=== PATIENT | female | born 2000 | race African-American/Black ===

== ENCOUNTER 2019-05-13 10:32 | Emergency (ER) | payer MEDICAID ==
[~2019-05-13] VITALS: Ht 162.6 cm; Wt 67.6 kg
[2019-05-13 10:39] VITALS: BP 114/80
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
--- NOTE | 2019-05-13 10:50 | NUR ---
DR CISNEROS AT BEDSIDE FOR EVAL.
[2019-05-13] MEDS ORDERED: IV NS 0.9% 1,000 ML BAG IV ONE (11:00)
[2019-05-13] MEDS ORDERED: ONDANSETRON HCL/PF 4 MG/2 ML VIAL IVP ONE (11:00)
[2019-05-13] MEDS ORDERED: ONDANSETRON HCL/PF 4 MG/2 ML VIAL ONE (11:01)
[2019-05-13 11:03] LABS: BASOPHILS % (AUTO) 0.3 % (0.0-2.0); EOSINOPHILS % (AUTO) 0.5 % (0.0-6.0); HEMATOCRIT 40 % (33-45); HEMOGLOBIN 13.3 g/dL (11.5-14.8); LYMPHOCYTES # (AUTO) 1.8 /CMM (0.8-4.8); LYMPHOCYTES % (AUTO) 19.2 % (20.0-44.0); MEAN CORPUSCULAR HGB CONC 34 g/dl (31.0-36.0); MEAN CORPUSCULAR VOLUME 86 fL (82-100); MONOCYTES # (AUTO) 0.6 /CMM (0.1-1.30); MONOCYTES % (AUTO) 6.9 % (2.0-12.0); NEUTROPHILS # (AUTO) 6.9 /CMM (1.8-8.9); NEUTROPHILS % (AUTO) 73.1 % (43.0-81.0); PLATELET COUNT (AUTO) 363 /CMM (150-450); RED BLOOD CELL COUNT(AUTO) 4.58 MIL/uL (4.0-5.2); WHITE BLOOD COUNT (AUTO) 9.5 K/uL (4.3-11.0)
[2019-05-13 11:14] LABS: CALCIUM, SERUM 9.3 mg/dL (8.5-10.1); CREATININE 0.7 mg/dL (0.6-1.3); POTASSIUM 3.8 mmol/L (3.5-5.1)
[2019-05-13 11:20] LABS: ALBUMIN 3.8 g/dL (3.4-5.0); BILIRUBIN,DIRECT 0.1 mg/dL (0.0-0.2); BILIRUBIN,TOTAL 0.8 mg/dL (0.2-1.0); TOTAL PROTEIN, SERUM 8.2 g/dL (6.4-8.2)
--- NOTE | 2019-05-13 12:20 | NUR ---
Patient discharged to home in stable condition. Written and verbal after care instructions given. Patient verbalizes understanding of instruction. IV removed. Catheter intact and site benign. Pressure and 4x4 applied to site. No bleeding noted.
== END 2019-05-13 12:25 | disposition home or self-care (01) ==
LOC: ER 10:32
DX: S20.219A Contusion of unspecified front wall of thorax, initial encounter (principal); R11.2 Nausea with vomiting, unspecified; V49.19XA Passenger injured in collision with other motor vehicles in nontraffic accident, initial encounter; Y93.89 Activity, other specified; Y92.488 Other paved roadways as the place of occurrence of the external cause; Y99.8 Other external cause status
CPT/HCPCS: 36415; 71045; 80048; 80076; 84702; 85025; 96361; 96374; 99284; J2405; J7030

== ENCOUNTER 2021-04-20 07:11 | Emergency (ER) | payer MEDICAID, OTHER ==
[~2021-04-20] VITALS: Ht 162.6 cm; Wt 61.7 kg
[2021-04-20 07:23] VITALS: BP 114/76
--- NOTE | 2021-04-20 07:25 | NUR ---
The patient bibs for c/o nasal congestion. Respiration regular and unlabored. Denies SOB. Denies pain. Will continue to monitor the patient.
[2021-04-20] MEDS ORDERED: LORA-815 PO (07:30)
--- NOTE | 2021-04-20 07:40 | NUR ---
The patient alert and oriented x4. Respiration regular and unlabored. Oxygen saturation in room air WNL. Denies pain. Patient discharged to home in stable condition. Written and verbal after care instructions given. Patient verbalizes understanding of instruction.
== END 2021-04-20 07:40 | disposition home or self-care (01) ==
LOC: ER 07:11
DX: R09.81 Nasal congestion (principal); Z88.1 Allergy status to other antibiotic agents